=== PATIENT | male | born 1990 | race Caucasian/White ===

== ENCOUNTER 2017-07-22 17:54 | Emergency (ER) | payer SELFPAY ==
[~2017-07-22] VITALS: Ht 190.5 cm; Wt 107.3 kg
[2017-07-22 18:16] VITALS: BP 124/67; PULSE 108; RESP 18; TEMP 100.4; O2SAT 100
[2017-07-22] MEDS ORDERED: SODIUM CHLOR 0.9% 1000 ML INJ 1,000 ML IV ONE (18:45)
[2017-07-22] MEDS ORDERED: KETOROLAC TROMETHAMINE 30 MG/ML (IVP) VIAL IV PUSH ONE (18:45)
[2017-07-22] MEDS ORDERED: SODIUM CHLORIDE 0.9% FLUSH 10 ML FLUSH IVF PRN (18:45)
--- NOTE | 2017-07-22 18:53 | PD ---
HPI Chief Complaint: Cold / Flu Symptoms Time Seen by Provider: 18:30 Travel History International Travel<30 days: No Contact w/Intl Traveler<30days: No Traveled to known affect area: No History of Present Illness HPI 26-year-old male presents to the emergency room for evaluation of fever, headache, photophobia, neck pain, diarrhea, sore throat, and nonproductive cough since this morning. Neck pain started 2 weeks ago without trauma or injury. Patient reports maximum temperature was 102.7 just prior to arrival. He has not taken anything for symptoms today. He took Tylenol earlier today for fever. Patient had 3 episodes of diarrhea 9 hours prior to arrival but has not had any since. Cough is nonproductive. Patient states when he coughs it makes his head hurt worse. States he went to work this morning but had to leave work early because of discomfort. Denies abdominal pain, nausea, or vomiting. No chronic medical conditions or daily medications. Patient reports sick contacts at work. His profundus sic one month ago. [facility] Past Medical History Asthma: Yes Heart Rhythm Problems: Yes (HEART MURMUR) Cardiovascular Problems: Yes (HEART MURMUR) Diminished Hearing: No Respiratory: Yes Immunizations Current: No Migraines: Yes Family History Family Hypercholesterolemia: Yes Social History Alcohol Use: Yes (3 BEERS ON WEEKEND) Tobacco Use: No (smokeless tobacco) Substance Use: No Allergies-Medications (Allergen,Severity, Reaction): Coded Allergies: No Known Allergies (Verified , 07/22/17) Reported Meds & Prescriptions Reported Meds & Active Scripts Active No Active Prescriptions or Reported Medications Review of Systems Except as stated in HPI: all other systems reviewed are Neg Physical Exam Narrative GENERAL: Well-nourished, well-developed male in no acute distress. Slightly febrile 100.4. Ambulatory. SKIN: Focused skin assessment warm/dry. No rash. HEAD: Normocephalic. EYES: No scleral icterus. No injection or drainage. Mild to moderate photophobia. NECK: Supple, trachea midline. No JVD or lymphadenopathy. ENT: Mucosa pink and moist. Moderate erythema without significant edema or exudates. No uvular edema. No uvular, palatal, or tonsillar deviation. Airway patent. Nasal turbinates appear normal without nasal blood, purulent drainage or septal hematoma. EARS: Bilateral pinnae and external canals appear within normal limits. Bilateral tympanic membranes without erythema, dullness or perforation. CARDIOVASCULAR: Regular rate and rhythm without murmurs, gallops, or rubs. RESPIRATORY: Breath sounds equal bilaterally. No accessory muscle use. No crackles, rales, wheezes, or rhonchi. NEUROLOGICAL: Awake and alert. Cranial nerves II through XII intact. Motor and sensory grossly within normal limits. Five out of 5 muscle strength in all muscle groups. Normal speech. Negative Kernig and Brudzinski sign. Data Data Last Documented VS Vital Signs Date Time Temp Pulse Resp B/P (MAP) Pulse Ox O2 Delivery O2 Flow Rate FiO2 07/22/17 19:10 18 100 Room Air 07/22/17 18:16 100.4 108 124/67 (86) Orders Orders Group A Rapid Strep Screen (07/22/17 18:37) Influenzae A/B Antigen (07/22/17 18:37) Basic Metabolic Panel (Bmp) (07/22/17 18:45) Complete Blood Count With Diff (07/22/17 18:45) Iv Access Insert/Monitor (07/22/17 18:45) Sodium Chloride 0.9% Flush (Ns Flush) (07/22/17 18:45) Ketorolac Inj (Toradol Inj) (07/22/17 18:45) Sodium Chlor 0.9% 1000 Ml Inj (Ns 1000 M (07/22/17 18:45) Strep Culture (Group A) (07/22/17 19:21) Metoclopramide Inj (Reglan Inj) (07/22/17 20:00) Diphenhydramine Inj (Benadryl Inj) (07/22/17 20:00) Labs Laboratory Tests Test 07/22/17 19:18 White Blood Count 8.7 TH/MM3 Red Blood Count 4.46 MIL/MM3 Hemoglobin 14.0 GM/DL Hematocrit 39.8 % Mean Corpuscular Volume 89.4 FL Mean Corpuscular Hemoglobin 31.4 PG Mean Corpuscular Hemoglobin Concent 35.1 % Red Cell Distribution Width 11.5 % Platelet Count 193 TH/MM3 Mean Platelet Volume 8.4 FL Neutrophils (%) (Auto) 72.8 % Lymphocytes (%) (Auto) 12.2 % Monocytes (%) (Auto) 9.2 % Eosinophils (%) (Auto) 1.7 % Basophils (%) (Auto) 4.1 % Neutrophils # (Auto) 6.3 TH/MM3 Lymphocytes # (Auto) 1.1 TH/MM3 Monocytes # (Auto) 0.8 TH/MM3 Eosinophils # (Auto) 0.1 TH/MM3 Basophils # (Auto) 0.4 TH/MM3 CBC Comment DIFF FINAL Differential Comment Blood Urea Nitrogen 7 MG/DL Creatinine 1.30 MG/DL Random Glucose 93 MG/DL Calcium Level 8.7 MG/DL Sodium Level 136 MEQ/L Potassium Level 3.6 MEQ/L Chloride Level 102 MEQ/L Carbon Dioxide Level 26.8 MEQ/L Anion Gap 7 MEQ/L Estimat Glomerular Filtration Rate 66 ML/MIN MDM Medical Decision Making Medical Screen Exam Complete: Yes Emergency Medical Condition: Yes Medical Record Reviewed: Yes Differential Diagnosis Streptococcal pharyngitis, viral pharyngitis, viral meningitis unlikely, viral syndrome, influenza Narrative Course 26-year-old male presents to the emergency room for evaluation of multiple complaints that started earlier today. Reported maximum temperature at home was 102.7 just prior to arrival. Patient reports taking his temperature just prior to arrival but did not take any medication. His temperature is 100.4 here. Reports left-sided neck pain for the past 2 weeks. He is well-appearing , smiling, interacting appropriately. No focal neurological deficits. Negative Kernig and Brudzinski signs. He is coughing occasionally in the emergency room. Lung sounds clear and equal bilaterally. Throat is mildly erythematous without significant edema or exudates. Rapid strep is negative. Basic labs obtained which showed no acute abnormalities. Patient was given a liter of fluids, Toradol, Reglan, and Benadryl the emergency room. Reports h moderate improvement symptoms. This is viral syndrome. No indication for antibiotics at this time. Patient discharged with instructions to continue hydration and rest and follow up with her primary care physician or return for worsening symptoms. He understands and agrees to plan. Diagnosis Primary Impression: Viral syndrome Referrals: Primary Care Physician Additional Instructions: Rest and drink plenty of fluids. Take ibuprofen with food as directed, as needed for pain. [id number] cough and cold medications as needed for symptoms. Follow-up with a primary care physician. Return to the emergency room for worsening symptoms. Scripts No Active Prescriptions or Reported Meds Disposition: 01 DISCHARGE HOME Condition: Stable Garima Jones Jul 22, 2017 18:53
[2017-07-22 19:28] LABS: AUTOMATED NEUTROPHIL # 6.3 TH/MM3 (1.8-7.7); BASOPHIL # 0.4 TH/MM3 (0-0.2); BASOPHIL % 4.1 % (0.0-2.0); EOSINOPHIL # 0.1 TH/MM3 (0-0.4); EOSINOPHIL % 1.7 % (0.0-4.0); HEMATOCRIT 39.8 % (39.0-51.0); HEMO FLAGS DIFF FINAL; LYMPH % 12.2 % (9.0-44.0); LYMPHOCYTE # 1.1 TH/MM3 (1.0-4.8); MEAN CELL VOLUME 89.4 FL (80.0-100.0); MEAN CORPUSCULAR HEMOGLOBIN 31.4 PG (27.0-34.0); MEAN CORPUSCULAR HGB CONC 35.1 % (32.0-36.0); MONO % 9.2 % (0.0-8.0); NEUT % 72.8 % (16.0-70.0); PLATELET COUNT 193 TH/MM3 (150-450); RED BLOOD COUNT 4.46 MIL/MM3 (4.50-5.90); RED CELL DISTRIBUTION WIDTH 11.5 % (11.6-17.2); WHITE BLOOD COUNT 8.7 TH/MM3 (4.0-11.0)
[2017-07-22 19:36] LABS: POTASSIUM 3.6 MEQ/L (3.5-5.1)
[2017-07-22 19:39] LABS: BICARBONATE 26.8 MEQ/L (21.0-32.0)
[2017-07-22] MEDS ORDERED: METOCLOPRAMIDE HCL 10 MG/2 ML VIAL IV PUSH ONE (20:00)
[2017-07-22] MEDS ORDERED: diphenhydrAMINE HCL 50 MG/ML VIAL IV PUSH ONE (20:00)
== END 2017-07-22 21:15 | disposition home or self-care (01) ==
LOC: PHEFT 17:54
DX: B34.9 Viral infection, unspecified (principal); R51 Headache; M54.2 Cervicalgia; R19.7 Diarrhea, unspecified; J02.9 Acute pharyngitis, unspecified; J45.909 Unspecified asthma, uncomplicated; F17.200 Nicotine dependence, unspecified, uncomplicated
CPT/HCPCS: 80048; 85025; 87081; 87804; 87880; 96374; 96375; 99284; J1200; J1885; J2765; J7030